=== PATIENT | male | born 1950 | race Caucasian/White ===

== ENCOUNTER → 2016-12-09 | Outpatient (CLI) | payer BC ==
[~2016-12-09] MED LIST: CARDURA2 M1 PO; IRON325 M1 PO; KLONOPIN1 MG PO; ULTRAM50 MG PO; ZOCOR40 MG PO
== END | disposition home or self-care (01) ==
DX: M16.11 Unilateral primary osteoarthritis, right hip (principal); R26.2 Difficulty in walking, not elsewhere classified; M62.81 Muscle weakness (generalized); M25.651 Stiffness of right hip, not elsewhere classified
CPT/HCPCS: 97110 GP; 97150 GO; 97161 GP; 97165 GO

== ENCOUNTER 2016-12-30 09:10 | Inpatient (IN) | payer BC ==
[~2016-12-30] VITALS: Ht 182.9 cm; Wt 102.0 kg
[2016-12-30 12:00] VITALS: BP 131/79
[2016-12-30 12:31] VITALS: BP 131/79
[2016-12-30 17:25] VITALS: BP 105/50
[2016-12-30 18:41] LABS: HEMATOCRIT 33.6 % (38.0-50.0); MCH 29.9 PG (29.0-34.0); MCHC 33.6 G/DL (30.0-36.0); MCV 88.9 FL (86-99); MEAN PLAT.VOLUME 8.8 uM^3 (9.0-12.4); PLATELET COUNT 177 K/uL (156-360); RBC DIS.WIDTH-CV 12.7 % (11.8-14.6); RBC DIS.WIDTH-SD 41.3 % (39-53)
[2016-12-30 18:42] LABS: RED BLOOD COUNT 3.78 M/uL (4.00-5.50); WHITE BLOOD COUNT 10.1 K/uL (4.1-10.2)
[2016-12-30 20:05] VITALS: BP 103/50
[2016-12-30 20:30] VITALS: BP 107/54
[2016-12-31] VITALS (8 sets, daily range): BP systolic 101–139; BP diastolic 55–64
[2016-12-31 05:58] LABS: ANION GAP 7 MEQ/L (2-14); CHLORIDE 100 MEQ/L (99-109); GFR ESTIMATE (CALCULATED) > 59 mL/min/; GLUCOSE 114 mg/dL (70-99); POTASSIUM 4.2 MEQ/L (3.7-5.4); SAMPLE HEMOLYSIS CHECK 0; SAMPLE ICTERIC CHECK 0; SAMPLE LIPEMIA CHECK 0; SODIUM 137 MEQ/L (136-147); UREA NITROGEN (BUN) 13 mg/dL (9-23)
[2016-12-31 17:10] LABS: HEMATOCRIT 33.7 % (38.0-50.0); MCV 88.9 FL (86-99)
[2017-01-01 03:52] VITALS: BP 111/51
[2017-01-01 08:30] VITALS: BP 108/52
[2017-01-01] MEDS ORDERED: LOVENOX40 MG/0.4 SC (08:58)
[2017-01-01] MEDS ORDERED: SENNA PLUS TAB1 EACH PO (08:58)
[2017-01-01] MEDS ORDERED: ENDOCET 5-3251 EACH PO (08:58)
[2017-01-01 11:44] VITALS: BP 123/58
== END 2017-01-01 14:08 | disposition home health service (06) | DRG 470 ==
LOC: 2SOUTH 09:10 → 3WEST 10:54 → 2SOUTH 10:54 → 3WEST 17:04
PROVIDERS: Orthopaedic Surgery
PROC: 0SR901Z Replacement of Right Hip Joint with Metal Synthetic Substitute, Open Approach (ICD-10-PCS; principal; 2016-12-30)
DX: M16.11 Unilateral primary osteoarthritis, right hip (principal); N40.0 Benign prostatic hyperplasia without lower urinary tract symptoms; F41.9 Anxiety disorder, unspecified; K21.9 Gastro-esophageal reflux disease without esophagitis; E78.00 Pure hypercholesterolemia, unspecified
CPT/HCPCS: 73501; 80048; 85014; 85018; 85027; 97530 GP; J0131; J0690; J1170; J1650; J2250; J2405; J3010; J7030; J7050